=== PATIENT | male | born 1995 | race Caucasian/White ===

== ENCOUNTER 2021-10-13 07:59 | Outpatient (CLI) | payer OTHER | END 2021-10-13 08:00 | disposition home or self-care (01) | LOC: LABBT 07:59 | PROVIDERS: ATTEND Student in an Organized Health Care Education/Training Program | DX: J34.2 Deviated nasal septum (principal); J34.3 Hypertrophy of nasal turbinates; J34.89 Other specified disorders of nose and nasal sinuses; R09.81 Nasal congestion; J31.0 Chronic rhinitis; Z20.822 Contact with and (suspected) exposure to COVID-19 | CPT/HCPCS: U0003; U0005 ==

== ENCOUNTER 2021-10-17 08:48 | Day surgery (SDC) | payer OTHER ==
[2021-10-16 12:56] VITALS: BMI 28.1
[2021-10-17] MEDS ORDERED: fentaNYL Citrate/PF 100 MCG/2 ML SYRINGE ONE (09:23)
[2021-10-17] MEDS ORDERED: Lidocaine 1% MPF 2 ML VIAL ONE (10:00)
[2021-10-17] MEDS ORDERED: AFRIN NASAL MIST 15 ML BOT ONE (10:01)
[2021-10-17] MEDS ORDERED: Ondansetron PF 4 MG/2 ML Vial ONE (11:58)
[2021-10-17] MEDS ORDERED: Succinylcholine 200 MG/10 ml SYRINGE FS ONE (11:58)
[2021-10-17] MEDS ORDERED: Dexamethasone 20 MG/5 ML VIAL ONE (11:58)
[2021-10-17] MEDS ORDERED: Lidocaine 1% PF 5 ML VIAL ONE (11:58)
[2021-10-17] MEDS ORDERED: PROPOFOL 200 MG/20 ML VIAL ONE (11:58)
[2021-10-17] MEDS ORDERED: Lidocaine 1% w/Epinephrine 1:100K 20 ML VIAL ONE (12:07)
[2021-10-17] MEDS ORDERED: Bacitracin Zinc Ointment 30 gm TUBE ONE (12:09)
[2021-10-17] MEDS ORDERED: Fentanyl 100 MCG/2 ML VIAL ONE ×3 (14:29→15:34)
[2021-10-17] MEDS ORDERED: hydrALAZINE 20 MG/ML VIAL ONE (15:21)
[2021-10-17] MEDS ORDERED: HYDROcodone/Acetaminophen 5/325 mg Tablet ONE (16:18)
== END 2021-10-17 17:30 | disposition home or self-care (01) ==
LOC: SDC 08:48
PROVIDERS: ATTEND Student in an Organized Health Care Education/Training Program
PROC: 09SM0ZZ Reposition Nasal Septum, Open Approach (ICD-10-PCS; principal; 2021-10-17)
PROC: 09QK0ZZ Repair Nasal Mucosa and Soft Tissue, Open Approach (ICD-10-PCS; principal; 2021-10-17)
PROC: 09BL0ZZ Excision of Nasal Turbinate, Open Approach (ICD-10-PCS; principal; 2021-10-17)
DX: J34.2 Deviated nasal septum (principal); J34.3 Hypertrophy of nasal turbinates; J34.89 Other specified disorders of nose and nasal sinuses; J31.0 Chronic rhinitis; Z79.899 Other long term (current) drug therapy; Z88.2 Allergy status to sulfonamides
CPT/HCPCS: C1889; J0360; J1100; J2405; J2704; J3010